=== PATIENT | male | born 1945 | race Caucasian/White ===

== ENCOUNTER → 2017-03-04 | Outpatient (CLI) | payer OTHER ==
[~2017-03-04] MED LIST: ACET-1757 PO; ACET325T21 PO; ACID1CAP PO; ACID1TAB7 PO; ALBU0.63 NEB; ALBUTEROL NEB INH; ALPR0.5T6 PO; AMOX-367 PO; AMOX1TAB64 PO; AMPI3VIA IV; ASCO500T7 PO; ASPI-614 PO; ASPI325T4 PO; ATOR20TA9 PO; BACL-19 PO; BIFI4CAP PO; CALC500T PO; CLOP75TA PO; Calcium Carbonate PO; DAPT500V6 IV; DOCU100C8 PO; ENOX40SY4 SQ; ERTA1VIA IV; FAMO20TA7 PO; FINA5TAB PO; FINA5TAB4 PO; FOLI1TAB7 PO; HYDR-3240 PO; HYDR25PO5 PO; LEVO50TA PO; LEVO50TA5 PO; LEVO750T6 PO; LISI5TAB7 PO; LOPE1TAB4 PO; LOSA50TA6 PO; MAGN400O4 PO; MAGN400T7 PO; METO25TA35 PO; METO50TA82 PO; METR500T PO; MICA100V3 IV; MORP30PC IV; NICO1PAT4 TD; NYST1000 PO; NYST1POW2 TP; OMEP20CA9 PO; ONDA4TAB7 PO; OXYC-302 PO; OXYC5TAB3 PO; PANT40TA5 PO; PHOS250T3 PO; SULF1TAB23 PO; SULF1TAB24 PO; TAMS0.4C2 PO; THIA100T10 PO; TRAM50TA2 PO; TRAZ50TA18 PO; VANC125C2 PO; VANC1VIA3 PO; ZINC220T PO
== END | disposition home or self-care (01) ==
LOC: CARD 12:31
PROVIDERS: ATTEND Internal Medicine Critical Care Medicine
DX: J44.9 Chronic obstructive pulmonary disease, unspecified (principal); M41.84 Other forms of scoliosis, thoracic region; Z95.0 Presence of cardiac pacemaker
CPT/HCPCS: 71020; 94060

== ENCOUNTER 2017-10-14 05:59 | Inpatient (IN) | payer OTHER ==
[~2017-10-14] VITALS: Ht 162.6 cm; Wt 72.6 kg
[~2017-10-14 05:59] MED LIST changes: +ACID1TAB PO; +ASPI325T17 PO; -ASPI325T4 PO; +CHOL10003 PO; +DOCU100C33 PO; -DOCU100C8 PO; -MAGN400O4 PO; +MAGN400O7 PO; +MULT-717 PO; +NICO-486 TD; -NICO1PAT4 TD; +NYST15CR2 TP; +OMEP-110 PO; +OMEP20TA62 PO; +PIPE3.373 IV; +SENN1TAB7 PO; +TAMS-11 PO
[2017-10-14] MEDS ORDERED: hydrALAzine 20 MG/ML, 1ML ONE (06:16)
[2017-10-14] MEDS ORDERED: CALCIUM GLUCONATE 0.46MEQ/1ML IVPush ONE (06:30)
[2017-10-14] MEDS ORDERED: MIDAZOLAM 1 MG/ML, 5ML IVPush ONE ×2 (06:30→10:00)
[2017-10-14] MEDS ORDERED: hydrALAzine 20 MG/ML, 1ML IV ONE (06:30)
[2017-10-14] MEDS ORDERED: MAGNESIUM SULFATE 1 GM in SODIUM CHLORIDE 0.9% 50 ML IV ONE (06:30)
[2017-10-14] MEDS ORDERED: AMIODARONE 150 MG in DEXTROSE 5% 100 ML IV ONE (06:30)
[2017-10-14] MEDS ORDERED: ROCURONIUM 10 MG/ML,10ML IVPush ONE (06:30)
[2017-10-14] MEDS ORDERED: ETOMIDATE 20 MG/10 ML IVPush ONE (06:30)
[2017-10-14] MEDS: AMIODARONE 900 MG in DEXTROSE 5% 482 ML IV SCH (06:33)
[2017-10-14 06:36] LABS: INTERNATIONAL NORMALIZED RATIO 1.24 (0.93-1.1); PROTHROMBIN TIME 12.8 Seconds (9.6-11.5)
[2017-10-14 06:38] LABS: ALANINE AMINOTRANSFERASE 22 U/L (12-78); ALBUMIN 3.2 g/dL (3.4-5.0); ANION GAP 16 mmol/L (5-15); CALCIUM 10.4 mg/dL (8.5-10.1); CHLORIDE 105 mmol/L (98-107); CREATININE 0.87 mg/dL (0.7-1.3)
[2017-10-14 06:43] LABS: ALKALINE PHOSPHATASE 87 U/L (45-117); BILIRUBIN,TOTAL 0.5 mg/dL (0.2-1.0); TOTAL PROTEIN 6.9 g/dL (6.4-8.2); TROPONIN I 0.021 ng/mL (0.000-0.045)
[2017-10-14] MEDS: FILTER 0.22 MICRON IV PRN (06:44)
[2017-10-14 06:50] LABS: MEAN CORPUSCULAR HEMOGLOBIN 28.9 pg (27.5-34.5); MEAN CORPUSCULAR HGB CONC 32.2 g/dL (33.2-36.2); MEAN CORPUSCULAR VOLUME 89.8 fL (81-97); MEAN PLATELET VOLUME 8.7 fL (7.4-10.4); PLATELET COUNT 387 x10^3/uL (130-400); RED BLOOD COUNT 6.03 x10^6/uL (4.38-5.82); RED CELL DISTRIBUTION WIDTH 15.1 % (9.4-14.8)
[2017-10-14 06:54] LABS: MD YES
[2017-10-14 06:57] LABS: MICROSCOPIC INDICATED
[2017-10-14 06:58] LABS: BAND#(MANUAL) 8.94 x10^3/uL; BANDS%(MANUAL) 16 % (0-7); EOS#(MANUAL) 1.12 x10^3/uL (0.0-0.4); EOS% (MANUAL) 2 % (1-7); LYMPH#(MANUAL) 11.74 x10^3/uL (1-3.4); LYMPHS% (MANUAL) 21 % (22-44); MONOS#(MANUAL) 3.91 x10^3/uL (0.3-2.7); MONOS% (MANUAL) 7 % (2-9); SEG#(MANUAL) 30.19 x10^3/uL (1.8-6.8); SEGS% (MANUAL) 54 % (42-75)
[2017-10-14 06:59] LABS: <PLATELET ESTIMATE> ADEQUATE; ANISOCYTOSIS 1+; LARGE PLATELETS 1+; POLYCHROMASIA 1+
[2017-10-14] MEDS ORDERED: VANCOMYCIN PER PHARMACY MC ONE (07:09)
[2017-10-14 07:15] LABS: CULTURE INDICATED? NO
[2017-10-14] MEDS ORDERED: MEROPENEM 1 GM in SODIUM CHLORIDE 0.9% 100 ML IV ONE (07:30)
[2017-10-14] MEDS ORDERED: VANCOMYCIN 1,500 MG in SODIUM CHLORIDE 0.9% 250 ML IV ONE (07:30)
[2017-10-14] MEDS: PROPOFOL 100 ML IV SCH ×3 (07:40→20:55)
[2017-10-14] MEDS ORDERED: LABETALOL 5MG/ML, 20ML IVPush PRN (08:00)
[2017-10-14] MEDS ORDERED: POLYETHYLENE GLYCOL 17 GM PACKET PO PRN (08:00)
[2017-10-14] MEDS ORDERED: HEPARIN 5,000 UNITS/ML, 1ML SQ SCH (08:00)
[2017-10-14] MEDS ORDERED: DOCUSATE 100 MG CAPSULE PO PRN (08:00)
[2017-10-14] MEDS ORDERED: BISACODYL 10 MG SUPP PR PRN ×2 (08:00→12:30)
[2017-10-14] MEDS ORDERED: hydrALAzine 20 MG/ML, 1ML IVPush PRN (08:00)
[2017-10-14] MEDS ORDERED: VANCOMYCIN PER PHARMACY MC PRN (08:00)
[2017-10-14] MEDS ORDERED: ACETAMINOPHEN 325 MG TABLET PO PRN (08:00)
[2017-10-14] MEDS ORDERED: PANTOPRAZOLE 40 MG IV IVPush SCH (08:00)
[2017-10-14] MEDS ORDERED: OMNIPAQUE 350 MG/ML, 100ML BOTTLE ONE (08:31)
[2017-10-14] MEDS ORDERED: ONDA4TAB10 PO (08:55)
[2017-10-14] MEDS ORDERED: LACT1CAP61 PO (08:55)
[2017-10-14] MEDS ORDERED: ATOR40TA78 PO (08:55)
[2017-10-14] MEDS ORDERED: LOSARTAN 50MG TABLET PO SCH (09:00)
[2017-10-14] MEDS ORDERED: SODIUM CHLORIDE 0.9% 1,000ML IVBOLUS ONE (09:00)
[2017-10-14] MEDS: FINASTERIDE 5 MG TABLET PO SCH (09:00)
[2017-10-14] MEDS ORDERED: DILTIAZEM 5 MG/ML, 5ML IVPush ONE (09:00)
[2017-10-14] MEDS: NYSTATIN/TRIAMCINOLONE CRM 15GM TP SCH ×2 (09:00→20:56)
[2017-10-14 09:05] LABS: CHOL/HDL RATIO 2.8; LDL/HDL RATIO 0.6 (0.5-3.0)
[2017-10-14] MEDS ORDERED: POTA99TA24 PO-COUM (09:06)
[2017-10-14 09:36] LABS: THYROID STIMULATING HORMONE 8.15 mIU/L (0.358-3.740)
[2017-10-14] MEDS: METOPROLOL TARTRATE 25 MG TABLET PO SCH ×3 (10:00→21:00)
[2017-10-14] MEDS ORDERED: INSULIN REGULAR 100 UNITS/ML, 3ML VIAL IVPush ONE (10:00)
[2017-10-14] MEDS ORDERED: FENTANYL PF 100 MCG/2ML IV ONE (10:15)
[2017-10-14] MEDS ORDERED: FENTANYL PF 100 MCG/2ML ONE (10:18)
[2017-10-14] MEDS ORDERED: PANTOPRAZOLE 40 MG IV ONE (10:45)
[2017-10-14] MEDS ORDERED: INSULIN REGULAR 100 UNITS/ML, 3ML VIAL ONE (10:46)
[2017-10-14] MEDS: LACTATED RINGERS 1,000 ML IV SCH ×3 (11:01→21:30)
[2017-10-14 12:19] LABS: TROPONIN I 0.161 ng/mL (0.000-0.045)
[2017-10-14] MEDS ORDERED: VECURONIUM 10 MG ONE (12:29)
[2017-10-14] MEDS: FAMOTIDINE 20 MG/2 ML IV SCH (12:30)
[2017-10-14] MEDS: ALBUTEROL/IPRATROPIUM 2.5MG/0.5MG, 3 ML INLINE SCH ×4 (12:30→22:04)
[2017-10-14] MEDS ORDERED: PHARMACY MAY ADJ FOR RENAL FX MC SCH (12:30)
[2017-10-14] MEDS ORDERED: SODIUM CHLORIDE 0.9% 1,000ML IV SCH (12:30)
[2017-10-14] MEDS ORDERED: FENTANYL PF 100 MCG/2ML IVPush PRN (12:30)
[2017-10-14] MEDS ORDERED: SENNA/DOCUSATE TABLET NG PRN (12:30)
[2017-10-14] MEDS ORDERED: SENNOSIDES 8.8 MG/5 ML ORAL SOL NG PRN (12:30)
[2017-10-14] MEDS ORDERED: LIDOCAINE-MPF 1%, 2ML ENDO PRN (12:30)
[2017-10-14] MEDS ORDERED: VECURONIUM 10 MG IVPush ONE (13:00)
[2017-10-14] MEDS ORDERED: PHARMACOKINETIC MONITORING MC PRN (13:00)
[2017-10-14] MEDS ORDERED: PHARMACOKINETIC CONSULTATION MC ONE (13:00)
[2017-10-14] MEDS ORDERED: FUROSEMIDE 40 MG/4 ML IV ONE (13:30)
[2017-10-14] MEDS ORDERED: CALCIUM CHLORIDE 13.6 MEQ/10 ML ONE (14:00)
[2017-10-14] MEDS ORDERED: ETOMIDATE 20 MG/10 ML ONE (14:00)
[2017-10-14] MEDS ORDERED: PROPOFOL 10 MG/ML, 100ML IV ONE (14:00)
[2017-10-14] MEDS ORDERED: MIDAZOLAM 1 MG/ML, 5ML ONE (14:00)
[2017-10-14] MEDS ORDERED: ROCURONIUM 10MG/ML,5ML ONE (14:00)
[2017-10-14] MEDS ORDERED: AMIODARONE 50 MG/ML, 3ML ONE (14:00)
[2017-10-14] MEDS: MEROPENEM 1 GM in SODIUM CHLORIDE 0.9% 100 ML IV SCH (15:31)
[2017-10-14] MEDS: VANCOMYCIN 50 MG/ML ORAL SUSP PO SCH ×2 (15:31→19:43)
[2017-10-14] MEDS: CHOLECALCIFEROL 1,000 UNIT TABLET PO SCH (15:36)
[2017-10-14] MEDS: ENOXAPARIN 80 MG/0.8 ML SQ SCH (15:36)
[2017-10-14] MEDS: LACTOBACILLUS CHEW TABLET PO SCH ×2 (15:40→20:56)
[2017-10-14 17:08] LABS: MICROSCOPIC NOT IND
[2017-10-14 17:11] LABS: CULTURE INDICATED? NO
[2017-10-14] MEDS ORDERED: METOPROLOL TARTRATE 25 MG TABLET PO SCH (18:00)
[2017-10-14 18:07] LABS: TROPONIN I 0.195 ng/mL (0.000-0.045)
[2017-10-14] MEDS: TAMSULOSIN 0.4 MG CAP.ER.24H PO SCH (20:56)
[2017-10-14] MEDS: ATORVASTATIN 40 MG TABLET PO SCH (20:56)
[2017-10-14 22:15] VITALS: BP 89/58
[2017-10-15] MEDS: MEROPENEM 1 GM in SODIUM CHLORIDE 0.9% 100 ML IV SCH ×4 (00:05→18:18)
[2017-10-15] MEDS: ENOXAPARIN 80 MG/0.8 ML SQ SCH ×2 (00:05→13:28)
[2017-10-15] MEDS: FAMOTIDINE 20 MG/2 ML IV SCH ×2 (00:05→13:28)
[2017-10-15] MEDS: VANCOMYCIN 50 MG/ML ORAL SUSP PO SCH ×4 (00:12→19:19)
[2017-10-15] MEDS: ALBUTEROL/IPRATROPIUM 2.5MG/0.5MG, 3 ML INLINE SCH ×6 (02:16→22:00)
[2017-10-15] MEDS: METOPROLOL TARTRATE 25 MG TABLET PO SCH ×4 (04:00→21:30)
[2017-10-15] MEDS: PROPOFOL 100 ML IV PRN ×3 (04:26→19:20)
[2017-10-15 04:35] LABS: MEAN CORPUSCULAR HEMOGLOBIN 29.4 pg (27.5-34.5); MEAN CORPUSCULAR VOLUME 89.3 fL (81-97); MEAN PLATELET VOLUME 8.8 fL (7.4-10.4); PLATELET COUNT 267 x10^3/uL (130-400); RED CELL DISTRIBUTION WIDTH 15.2 % (9.4-14.8)
[2017-10-15 04:39] LABS: CHLORIDE 110 mmol/L (98-107)
[2017-10-15 04:44] LABS: ALANINE AMINOTRANSFERASE 18 U/L (12-78); ALBUMIN 2.1 g/dL (3.4-5.0); ALKALINE PHOSPHATASE 52 U/L (45-117); ANION GAP 10 mmol/L (5-15); BILIRUBIN,TOTAL 0.8 mg/dL (0.2-1.0); CALCIUM 7.7 mg/dL (8.5-10.1); CREATININE 0.64 mg/dL (0.7-1.3); TOTAL PROTEIN 5.1 g/dL (6.4-8.2)
[2017-10-15] MEDS: FILTER 0.22 MICRON IV PRN (04:46)
[2017-10-15] MEDS: NOREPINEPHRINE 4 MG in SODIUM CHLORIDE 0.9% 246 ML IV PRN (04:46)
[2017-10-15] MEDS: AMIODARONE 900 MG in DEXTROSE 5% 482 ML IV SCH ×2 (04:46→07:53)
[2017-10-15 05:31] LABS: MD YES
[2017-10-15 05:33] LABS: BAND#(MANUAL) 6.74 x10^3/uL; BANDS%(MANUAL) 24 % (0-7); LYMPH#(MANUAL) 3.65 x10^3/uL (1-3.4); LYMPHS% (MANUAL) 13 % (22-44); SEGS% (MANUAL) 63 % (42-75)
[2017-10-15 05:34] LABS: <PLATELET ESTIMATE> ADEQUATE; <RBC MORPHOLOGY> NORMAL
[2017-10-15 05:35] LABS: LARGE PLATELETS 1+
[2017-10-15 08:46] LABS: TROPONIN I 0.083 ng/mL (0.000-0.045)
[2017-10-15] MEDS ORDERED: MAGNESIUM SULFATE PMX 4GM/100M 100 ML IV ONE ×2 (09:00)
[2017-10-15] MEDS: FINASTERIDE 5 MG TABLET PO SCH (09:00)
[2017-10-15] MEDS: VANCOMYCIN 1,500 MG in SODIUM CHLORIDE 0.9% 250 ML IV SCH (09:27)
[2017-10-15] MEDS: POTASSIUM CHLORIDE 20 MEQ PACKET PO SCH ×3 (09:27→21:57)
[2017-10-15] MEDS: CHOLECALCIFEROL 1,000 UNIT TABLET PO SCH (09:27)
[2017-10-15] MEDS: LACTOBACILLUS CHEW TABLET PO SCH ×2 (09:27→21:56)
[2017-10-15] MEDS: NYSTATIN/TRIAMCINOLONE CRM 15GM TP SCH ×2 (09:28→21:57)
[2017-10-15] MEDS ORDERED: AMIODARONE 150 MG in DEXTROSE 5% 100 ML IV ONE (11:00)
[2017-10-15] MEDS: LACTATED RINGERS 1,000 ML IV SCH (13:28)
[2017-10-15] MEDS ORDERED: SODIUM CHLORIDE 0.9%, 500ML IVBOLUS ONE (15:00)
[2017-10-15] MEDS: ATORVASTATIN 40 MG TABLET PO SCH (21:56)
[2017-10-15] MEDS: TAMSULOSIN 0.4 MG CAP.ER.24H PO SCH (21:56)
[2017-10-16] MEDS: LACTATED RINGERS 1,000 ML IV SCH (00:11)
[2017-10-16] MEDS: VANCOMYCIN 50 MG/ML ORAL SUSP PO SCH ×4 (01:07→20:23)
[2017-10-16] MEDS: ENOXAPARIN 80 MG/0.8 ML SQ SCH ×2 (01:08→14:27)
[2017-10-16] MEDS: FAMOTIDINE 20 MG/2 ML IV SCH ×2 (01:08→14:26)
[2017-10-16] MEDS: PROPOFOL 100 ML IV PRN ×3 (01:09→17:58)
[2017-10-16] MEDS: ALBUTEROL/IPRATROPIUM 2.5MG/0.5MG, 3 ML INLINE SCH ×6 (02:00→22:00)
[2017-10-16] MEDS: MEROPENEM 1 GM in SODIUM CHLORIDE 0.9% 100 ML IV SCH ×3 (02:52→18:01)
[2017-10-16] MEDS: METOPROLOL TARTRATE 25 MG TABLET PO SCH ×4 (04:02→22:00)
[2017-10-16 06:26] LABS: BASOPHILS # (AUTO) 0.01 x10^3/uL (0-0.1); BASOPHILS % (AUTO) 0 % (0-1); EOSINOPHILS % (AUTO) 4 % (1-7); LYMPHOCYTES # (AUTO) 1.19 x10^3/uL (1-3.4); LYMPHOCYTES % (AUTO) 7 % (22-44); MD NO; MEAN CORPUSCULAR HEMOGLOBIN 29.3 pg (27.5-34.5); MEAN CORPUSCULAR VOLUME 88.8 fL (81-97); MEAN PLATELET VOLUME 8.9 fL (7.4-10.4); MONOCYTES # (AUTO) 0.91 x10^3/uL (0.2-0.8); MONOCYTES % (AUTO) 5 % (2-9); NEUTROPHILS # (AUTO) 14.24 x10^3/uL (1.8-6.8); NEUTROPHILS % (AUTO) 84 % (42-75); PLATELET COUNT 206 x10^3/uL (130-400); RED BLOOD COUNT 4.53 x10^6/uL (4.38-5.82); RED CELL DISTRIBUTION WIDTH 15.9 % (9.4-14.8)
[2017-10-16 06:31] LABS: CHLORIDE 109 mmol/L (98-107)
[2017-10-16 06:35] LABS: ANION GAP 10 mmol/L (5-15); CALCIUM 7.5 mg/dL (8.5-10.1); CREATININE 0.39 mg/dL (0.7-1.3)
[2017-10-16] MEDS: VANCOMYCIN 1,500 MG in SODIUM CHLORIDE 0.9% 250 ML IV SCH (08:39)
[2017-10-16] MEDS: FINASTERIDE 5 MG TABLET PO SCH (09:00)
[2017-10-16 09:37] LABS: BASOPHILS # (AUTO) 0.04 x10^3/uL (0-0.1); BASOPHILS % (AUTO) 0 % (0-1); EOSINOPHILS % (AUTO) 5 % (1-7); LYMPHOCYTES # (AUTO) 1.03 x10^3/uL (1-3.4); LYMPHOCYTES % (AUTO) 7 % (22-44); MD NO; MEAN CORPUSCULAR HGB CONC 33.9 g/dL (33.2-36.2); MEAN CORPUSCULAR VOLUME 88.5 fL (81-97); MEAN PLATELET VOLUME 8.9 fL (7.4-10.4); MONOCYTES # (AUTO) 1.13 x10^3/uL (0.2-0.8); MONOCYTES % (AUTO) 7 % (2-9); NEUTROPHILS # (AUTO) 12.72 x10^3/uL (1.8-6.8); NEUTROPHILS % (AUTO) 81 % (42-75); PLATELET COUNT 191 x10^3/uL (130-400); RED BLOOD COUNT 4.42 x10^6/uL (4.38-5.82); RED CELL DISTRIBUTION WIDTH 15.5 % (9.4-14.8)
[2017-10-16 09:46] LABS: ALBUMIN 1.8 g/dL (3.4-5.0); TOTAL PROTEIN 4.6 g/dL (6.4-8.2)
[2017-10-16] MEDS: LACTOBACILLUS CHEW TABLET PO SCH ×2 (09:56→20:23)
[2017-10-16] MEDS: POTASSIUM CHLORIDE 20 MEQ PACKET PO SCH ×3 (09:56→20:23)
[2017-10-16] MEDS: CHOLECALCIFEROL 1,000 UNIT TABLET PO SCH (09:57)
[2017-10-16] MEDS: NYSTATIN/TRIAMCINOLONE CRM 15GM TP SCH ×2 (09:58→20:24)
[2017-10-16] MEDS ORDERED: LIDOCAINE 1%, 20ML ONE (10:11)
[2017-10-16] MEDS ORDERED: MAGNESIUM SULFATE PMX 2GM/50ML 50 ML IV ONE (11:00)
[2017-10-16] MEDS ORDERED: LIDOCAINE 1%, 50ML ONE (14:50)
[2017-10-16] MEDS ORDERED: FENTANYL PF 100 MCG/2ML IV ONE (15:00)
[2017-10-16] MEDS: QUETIAPINE 25MG TABLET PO SCH ×2 (16:00→20:23)
[2017-10-16] MEDS: NOREPINEPHRINE 4 MG in SODIUM CHLORIDE 0.9% 246 ML IV PRN (18:00)
[2017-10-16] MEDS: AMIODARONE 900 MG in DEXTROSE 5% 482 ML IV SCH (18:30)
[2017-10-16] MEDS: TAMSULOSIN 0.4 MG CAP.ER.24H PO SCH (20:23)
[2017-10-16] MEDS: ATORVASTATIN 40 MG TABLET PO SCH (20:23)
[2017-10-17] MEDS: ALBUTEROL/IPRATROPIUM 2.5MG/0.5MG, 3 ML INLINE SCH ×6 (01:57→22:00)
[2017-10-17] MEDS: VANCOMYCIN 50 MG/ML ORAL SUSP PO SCH ×4 (02:04→19:24)
[2017-10-17] MEDS: FAMOTIDINE 20 MG/2 ML IV SCH ×2 (02:04→13:01)
[2017-10-17] MEDS: ENOXAPARIN 80 MG/0.8 ML SQ SCH ×2 (02:04→13:00)
[2017-10-17] MEDS: LACTATED RINGERS 1,000 ML IV SCH (02:04)
[2017-10-17] MEDS: PROPOFOL 100 ML IV PRN ×3 (02:10→20:07)
[2017-10-17] MEDS: MEROPENEM 1 GM in SODIUM CHLORIDE 0.9% 100 ML IV SCH (02:25)
[2017-10-17 03:22] LABS: BASOPHILS # (AUTO) 0.06 x10^3/uL (0-0.1); BASOPHILS % (AUTO) 1 % (0-1); EOSINOPHILS # (AUTO) 0.72 x10^3/uL (0-0.4); EOSINOPHILS % (AUTO) 6 % (1-7); LYMPHOCYTES # (AUTO) 0.95 x10^3/uL (1-3.4); LYMPHOCYTES % (AUTO) 8 % (22-44); MD NO; MEAN CORPUSCULAR HEMOGLOBIN 29.4 pg (27.5-34.5); MEAN CORPUSCULAR HGB CONC 33.3 g/dL (33.2-36.2); MEAN CORPUSCULAR VOLUME 88.3 fL (81-97); MEAN PLATELET VOLUME 8.9 fL (7.4-10.4); MONOCYTES # (AUTO) 0.77 x10^3/uL (0.2-0.8); MONOCYTES % (AUTO) 6 % (2-9); NEUTROPHILS # (AUTO) 9.84 x10^3/uL (1.8-6.8); NEUTROPHILS % (AUTO) 80 % (42-75); PLATELET COUNT 189 x10^3/uL (130-400); RED BLOOD COUNT 4.44 x10^6/uL (4.38-5.82); RED CELL DISTRIBUTION WIDTH 15.6 % (9.4-14.8)
[2017-10-17 03:31] LABS: ALANINE AMINOTRANSFERASE 19 U/L (12-78); ALBUMIN 1.7 g/dL (3.4-5.0); ANION GAP 7 mmol/L (5-15); CALCIUM 7.7 mg/dL (8.5-10.1); CHLORIDE 111 mmol/L (98-107); CREATININE 0.31 mg/dL (0.7-1.3); TRIGLYCERIDES 123 mg/dL (50-200)
[2017-10-17 03:34] LABS: ALKALINE PHOSPHATASE 60 U/L (45-117); BILIRUBIN,TOTAL 0.4 mg/dL (0.2-1.0); TOTAL PROTEIN 4.5 g/dL (6.4-8.2)
[2017-10-17] MEDS: METOPROLOL TARTRATE 25 MG TABLET PO SCH ×4 (04:00→22:34)
[2017-10-17] MEDS: CEFTRIAXONE PMX 1GM/50ML 50 ML IV SCH (08:50)
[2017-10-17] MEDS: CHOLECALCIFEROL 1,000 UNIT TABLET PO SCH (08:51)
[2017-10-17] MEDS: QUETIAPINE 25MG TABLET PO SCH ×2 (08:52→20:07)
[2017-10-17] MEDS: FINASTERIDE 5 MG TABLET PO SCH (08:53)
[2017-10-17] MEDS: LACTOBACILLUS CHEW TABLET PO SCH ×2 (08:54→20:07)
[2017-10-17] MEDS: POTASSIUM CHLORIDE 20 MEQ PACKET PO SCH ×3 (08:54→20:07)
[2017-10-17] MEDS: AMIODARONE 200 MG TABLET PO SCH ×2 (08:56→20:07)
[2017-10-17] MEDS: DOXYCYCLINE 100 MG in DEXTROSE 5% 250 ML IV SCH ×2 (08:56→20:11)
[2017-10-17] MEDS: NYSTATIN/TRIAMCINOLONE CRM 15GM TP SCH ×2 (08:57→20:11)
[2017-10-17] MEDS ORDERED: LACTATED RINGERS 1,000 ML IV SCH (10:00)
[2017-10-17] MEDS ORDERED: MORPHINE SULFATE 4 MG/ML, 1ML ONE (15:47)
[2017-10-17] MEDS: MORPHINE SULFATE 4 MG/ML, 1ML IVPush PRN (15:52)
[2017-10-17] MEDS: ATORVASTATIN 40 MG TABLET PO SCH (20:07)
[2017-10-17] MEDS: TAMSULOSIN 0.4 MG CAP.ER.24H PO SCH (20:07)
[2017-10-18] MEDS: ALBUTEROL/IPRATROPIUM 2.5MG/0.5MG, 3 ML INLINE SCH ×6 (02:00→22:09)
[2017-10-18] MEDS: FAMOTIDINE 20 MG/2 ML IV SCH (03:04)
[2017-10-18] MEDS: ENOXAPARIN 80 MG/0.8 ML SQ SCH ×2 (03:05→13:10)
[2017-10-18] MEDS: VANCOMYCIN 50 MG/ML ORAL SUSP PO SCH ×4 (03:05→21:59)
[2017-10-18] MEDS: METOPROLOL TARTRATE 25 MG TABLET PO SCH ×4 (04:47→21:59)
[2017-10-18 07:15] LABS: MEAN CORPUSCULAR HEMOGLOBIN 28.8 pg (27.5-34.5); MEAN CORPUSCULAR HGB CONC 32.4 g/dL (33.2-36.2); MEAN PLATELET VOLUME 10.3 fL (7.4-10.4); PLATELET COUNT 197 x10^3/uL (130-400); RED BLOOD COUNT 4.46 x10^6/uL (4.38-5.82); RED CELL DISTRIBUTION WIDTH 15.8 % (9.4-14.8)
[2017-10-18 07:22] LABS: ANION GAP 6 mmol/L (5-15); CALCIUM 7.9 mg/dL (8.5-10.1); CHLORIDE 108 mmol/L (98-107)
[2017-10-18] MEDS: CEFTRIAXONE PMX 1GM/50ML 50 ML IV SCH (07:52)
[2017-10-18] MEDS: MORPHINE SULFATE 4 MG/ML, 1ML IVPush PRN ×2 (07:52→20:09)
[2017-10-18 08:39] LABS: MD YES
[2017-10-18 08:42] LABS: ANISOCYTOSIS 1+; LYMPH#(MANUAL) 1.68 x10^3/uL (1-3.4); LYMPHS% (MANUAL) 14 % (22-44); MONOS#(MANUAL) 0.48 x10^3/uL (0.3-2.7); MONOS% (MANUAL) 4 % (2-9); SEG#(MANUAL) 9.84 x10^3/uL (1.8-6.8); SEGS% (MANUAL) 82 % (42-75)
[2017-10-18 08:43] LABS: <PLATELET ESTIMATE> ADEQUATE; <PLT MORPHOLOGY> NORMAL PLT MORPH
[2017-10-18] MEDS: DOXYCYCLINE 100 MG in DEXTROSE 5% 250 ML IV SCH ×2 (08:55→20:07)
[2017-10-18] MEDS: CHOLECALCIFEROL 1,000 UNIT TABLET PO SCH (08:56)
[2017-10-18] MEDS: LACTOBACILLUS CHEW TABLET PO SCH ×2 (08:56→20:08)
[2017-10-18] MEDS: AMIODARONE 200 MG TABLET PO SCH ×2 (08:56→20:08)
[2017-10-18] MEDS: FINASTERIDE 5 MG TABLET PO SCH (08:56)
[2017-10-18] MEDS: QUETIAPINE 25MG TABLET PO SCH ×2 (08:57→20:09)
[2017-10-18] MEDS: NYSTATIN/TRIAMCINOLONE CRM 15GM TP SCH ×2 (08:57→22:00)
[2017-10-18] MEDS: FAMOTIDINE 20 MG TABLET PO SCH (13:10)
[2017-10-18] MEDS: TAMSULOSIN 0.4 MG CAP.ER.24H PO SCH (20:08)
[2017-10-18] MEDS: ATORVASTATIN 40 MG TABLET PO SCH (20:08)
[2017-10-18] MEDS: MIDAZOLAM 1 MG/ML, 2ML IV PRN (23:27)
[2017-10-19] MEDS: ENOXAPARIN 80 MG/0.8 ML SQ SCH ×2 (01:14→13:55)
[2017-10-19] MEDS: FAMOTIDINE 20 MG TABLET PO SCH ×3 (01:14→23:49)
[2017-10-19] MEDS: MORPHINE SULFATE 4 MG/ML, 1ML IVPush PRN ×3 (02:44→19:44)
[2017-10-19] MEDS: ALBUTEROL/IPRATROPIUM 2.5MG/0.5MG, 3 ML INLINE SCH ×6 (03:09→23:26)
[2017-10-19] MEDS: VANCOMYCIN 50 MG/ML ORAL SUSP PO SCH ×4 (04:03→21:56)
[2017-10-19] MEDS: METOPROLOL TARTRATE 25 MG TABLET PO SCH ×4 (04:03→23:49)
[2017-10-19 04:28] LABS: MEAN CORPUSCULAR HEMOGLOBIN 28.8 pg (27.5-34.5); MEAN CORPUSCULAR HGB CONC 32.5 g/dL (33.2-36.2); MEAN CORPUSCULAR VOLUME 88.6 fL (81-97); PLATELET COUNT 216 x10^3/uL (130-400); RED BLOOD COUNT 4.41 x10^6/uL (4.38-5.82); RED CELL DISTRIBUTION WIDTH 15.6 % (9.4-14.8)
[2017-10-19 04:38] LABS: ANION GAP 4 mmol/L (5-15); CALCIUM 8.5 mg/dL (8.5-10.1); CHLORIDE 104 mmol/L (98-107); CREATININE 0.27 mg/dL (0.7-1.3)
[2017-10-19 05:59] LABS: BASOPHILS # (AUTO) 0.04 x10^3/uL (0-0.1); BASOPHILS % (AUTO) 0 % (0-1); EOSINOPHILS # (AUTO) 0.95 x10^3/uL (0-0.4); EOSINOPHILS % (AUTO) 7 % (1-7); LYMPHOCYTES # (AUTO) 1.68 x10^3/uL (1-3.4); LYMPHOCYTES % (AUTO) 12 % (22-44); MD SCAN; MONOCYTES # (AUTO) 1.66 x10^3/uL (0.2-0.8); MONOCYTES % (AUTO) 12 % (2-9); NEUTROPHILS # (AUTO) 9.22 x10^3/uL (1.8-6.8); NEUTROPHILS % (AUTO) 68 % (42-75)
[2017-10-19] MEDS ORDERED: MAGNESIUM SULFATE PMX 2GM/50ML 50 ML IV ONE (07:30)
[2017-10-19] MEDS: CEFTRIAXONE 1,000 MG in DEXTROSE 5% 50 ML IV SCH (07:46)
[2017-10-19] MEDS: DOXYCYCLINE 100 MG in DEXTROSE 5% 250 ML IV SCH ×2 (08:46→21:56)
[2017-10-19] MEDS: FINASTERIDE 5 MG TABLET PO SCH (09:00)
[2017-10-19] MEDS: NYSTATIN/TRIAMCINOLONE CRM 15GM TP SCH ×2 (09:59→21:57)
[2017-10-19] MEDS: LACTOBACILLUS CHEW TABLET PO SCH ×2 (10:01→21:57)
[2017-10-19] MEDS: QUETIAPINE 25MG TABLET PO SCH ×2 (10:02→21:57)
[2017-10-19] MEDS: AMIODARONE 200 MG TABLET PO SCH ×2 (10:04→21:56)
[2017-10-19] MEDS: CHOLECALCIFEROL 1,000 UNIT TABLET PO SCH (10:04)
[2017-10-19] MEDS: LACTULOSE 20 GM/30 ML UDC NG PRN (10:20)
[2017-10-19] MEDS: MIDAZOLAM 1 MG/ML, 2ML IV PRN (19:47)
[2017-10-19] MEDS: TAMSULOSIN 0.4 MG CAP.ER.24H PO SCH (21:00)
[2017-10-19] MEDS: ATORVASTATIN 40 MG TABLET PO SCH (21:56)
[2017-10-20] MEDS: ENOXAPARIN 80 MG/0.8 ML SQ SCH ×2 (02:13→16:03)
[2017-10-20] MEDS: MORPHINE SULFATE 4 MG/ML, 1ML IVPush PRN (02:13)
[2017-10-20] MEDS: ALBUTEROL/IPRATROPIUM 2.5MG/0.5MG, 3 ML INLINE SCH ×2 (03:33→06:00)
[2017-10-20] MEDS: VANCOMYCIN 50 MG/ML ORAL SUSP PO SCH ×4 (03:54→22:01)
[2017-10-20] MEDS: METOPROLOL TARTRATE 25 MG TABLET PO SCH ×4 (03:54→22:04)
[2017-10-20 04:45] LABS: MEAN CORPUSCULAR HEMOGLOBIN 29.3 pg (27.5-34.5); MEAN CORPUSCULAR HGB CONC 32.8 g/dL (33.2-36.2); MEAN CORPUSCULAR VOLUME 89.2 fL (81-97); MEAN PLATELET VOLUME 9.1 fL (7.4-10.4); PLATELET COUNT 246 x10^3/uL (130-400); RED CELL DISTRIBUTION WIDTH 15.5 % (9.4-14.8)
[2017-10-20 04:47] LABS: ANION GAP 7 mmol/L (5-15); CALCIUM 8.9 mg/dL (8.5-10.1); CHLORIDE 102 mmol/L (98-107)
[2017-10-20 04:51] LABS: CREATININE 0.23 mg/dL (0.7-1.3); TRIGLYCERIDES 103 mg/dL (50-200)
[2017-10-20 05:35] LABS: BASOPHILS % (AUTO) 1 % (0-1); EOSINOPHILS # (AUTO) 0.88 x10^3/uL (0-0.4); EOSINOPHILS % (AUTO) 6 % (1-7); LYMPHOCYTES % (AUTO) 16 % (22-44); MD SCAN; MONOCYTES # (AUTO) 1.69 x10^3/uL (0.2-0.8); MONOCYTES % (AUTO) 12 % (2-9); NEUTROPHILS # (AUTO) 9.09 x10^3/uL (1.8-6.8); NEUTROPHILS % (AUTO) 65 % (42-75)
[2017-10-20] MEDS: FINASTERIDE 5 MG TABLET PO SCH (07:46)
[2017-10-20] MEDS: CHOLECALCIFEROL 1,000 UNIT TABLET PO SCH (07:52)
[2017-10-20] MEDS: LACTOBACILLUS CHEW TABLET PO SCH ×2 (07:52→20:35)
[2017-10-20] MEDS: QUETIAPINE 25MG TABLET PO SCH (07:52)
[2017-10-20] MEDS: AMIODARONE 200 MG TABLET PO SCH ×2 (07:53→20:36)
[2017-10-20] MEDS: CEFTRIAXONE 1,000 MG in DEXTROSE 5% 50 ML IV SCH (09:12)
[2017-10-20] MEDS: NYSTATIN/TRIAMCINOLONE CRM 15GM TP SCH ×2 (09:12→20:30)
[2017-10-20] MEDS ORDERED: ALBUTEROL/IPRATROPIUM 2.5MG/0.5MG, 3 ML NPPB PRN (09:30)
[2017-10-20] MEDS: DOXYCYCLINE 100 MG in DEXTROSE 5% 250 ML IV SCH ×2 (10:04→20:30)
[2017-10-20] MEDS: ALBUTEROL/IPRATROPIUM 2.5MG/0.5MG, 3 ML NPPB SCH ×3 (10:21→20:01)
[2017-10-20] MEDS: TAMSULOSIN 0.4 MG CAP.ER.24H PO SCH (20:35)
[2017-10-20] MEDS: ATORVASTATIN 40 MG TABLET PO SCH (20:35)
[2017-10-21 04:26] LABS: BASOPHILS # (AUTO) 0.09 x10^3/uL (0-0.1); BASOPHILS % (AUTO) 1 % (0-1); EOSINOPHILS # (AUTO) 0.57 x10^3/uL (0-0.4); EOSINOPHILS % (AUTO) 4 % (1-7); LYMPHOCYTES % (AUTO) 11 % (22-44); MD NO; MEAN CORPUSCULAR HEMOGLOBIN 28.7 pg (27.5-34.5); MEAN CORPUSCULAR HGB CONC 32.2 g/dL (33.2-36.2); MEAN CORPUSCULAR VOLUME 89.2 fL (81-97); MEAN PLATELET VOLUME 8.3 fL (7.4-10.4); MONOCYTES # (AUTO) 1.37 x10^3/uL (0.2-0.8); MONOCYTES % (AUTO) 9 % (2-9); NEUTROPHILS # (AUTO) 11.27 x10^3/uL (1.8-6.8); NEUTROPHILS % (AUTO) 76 % (42-75); PLATELET COUNT 306 x10^3/uL (130-400); RED BLOOD COUNT 4.53 x10^6/uL (4.38-5.82); RED CELL DISTRIBUTION WIDTH 15.4 % (9.4-14.8)
[2017-10-21] MEDS: VANCOMYCIN 50 MG/ML ORAL SUSP PO SCH ×4 (04:27→22:24)
[2017-10-21] MEDS: ENOXAPARIN 80 MG/0.8 ML SQ SCH (04:27)
[2017-10-21] MEDS: METOPROLOL TARTRATE 25 MG TABLET PO SCH (04:28)
[2017-10-21 04:45] LABS: ANION GAP 6 mmol/L (5-15); CHLORIDE 104 mmol/L (98-107); CREATININE 0.26 mg/dL (0.7-1.3)
[2017-10-21] MEDS: ALBUTEROL/IPRATROPIUM 2.5MG/0.5MG, 3 ML NPPB SCH ×3 (06:55→18:49)
[2017-10-21] MEDS ORDERED: MAGNESIUM SULFATE PMX 4GM/100M 100 ML IV ONE (07:30)
[2017-10-21] MEDS: DOXYCYCLINE 100 MG in DEXTROSE 5% 250 ML IV SCH (08:00)
[2017-10-21] MEDS: CEFTRIAXONE 1,000 MG in DEXTROSE 5% 50 ML IV SCH (08:24)
[2017-10-21] MEDS: NYSTATIN/TRIAMCINOLONE CRM 15GM TP SCH ×2 (08:32→22:24)
[2017-10-21] MEDS: LACTOBACILLUS CHEW TABLET PO SCH ×2 (08:41→22:24)
[2017-10-21] MEDS: CHOLESTYRAMINE LIGHT 4GM PACKET PO SCH ×2 (08:41→22:24)
[2017-10-21] MEDS: AMIODARONE 200 MG TABLET PO SCH (08:42)
[2017-10-21] MEDS: CHOLECALCIFEROL 1,000 UNIT TABLET PO SCH (08:42)
[2017-10-21] MEDS: FINASTERIDE 5 MG TABLET PO SCH (08:42)
[2017-10-21] MEDS: APIXABAN 5 MG TABLET PO SCH ×2 (12:00→22:24)
[2017-10-21] MEDS: METOPROLOL TARTRATE 50 MG TABLET PO SCH (17:51)
[2017-10-21] MEDS: TAMSULOSIN 0.4 MG CAP.ER.24H PO SCH (22:24)
[2017-10-21] MEDS: ATORVASTATIN 40 MG TABLET PO SCH (22:24)
[2017-10-22] MEDS: VANCOMYCIN 50 MG/ML ORAL SUSP PO SCH ×4 (04:00→21:50)
[2017-10-22 04:36] LABS: MEAN CORPUSCULAR HEMOGLOBIN 29.3 pg (27.5-34.5); MEAN CORPUSCULAR HGB CONC 33.2 g/dL (33.2-36.2); MEAN CORPUSCULAR VOLUME 88.2 fL (81-97); MEAN PLATELET VOLUME 8.6 fL (7.4-10.4); PLATELET COUNT 379 x10^3/uL (130-400); RED BLOOD COUNT 4.95 x10^6/uL (4.38-5.82); RED CELL DISTRIBUTION WIDTH 15.3 % (9.4-14.8)
[2017-10-22 04:41] LABS: ANION GAP 6 mmol/L (5-15); CALCIUM 8.7 mg/dL (8.5-10.1); CHLORIDE 101 mmol/L (98-107); CREATININE 0.37 mg/dL (0.7-1.3)
[2017-10-22 05:47] LABS: BASOPHILS # (AUTO) 0.16 x10^3/uL (0-0.1); BASOPHILS % (AUTO) 1 % (0-1); EOSINOPHILS # (AUTO) 0.23 x10^3/uL (0-0.4); EOSINOPHILS % (AUTO) 1 % (1-7); LYMPHOCYTES # (AUTO) 1.65 x10^3/uL (1-3.4); LYMPHOCYTES % (AUTO) 10 % (22-44); MD SCAN; MONOCYTES # (AUTO) 1.86 x10^3/uL (0.2-0.8); MONOCYTES % (AUTO) 11 % (2-9); NEUTROPHILS # (AUTO) 12.96 x10^3/uL (1.8-6.8); NEUTROPHILS % (AUTO) 77 % (42-75)
[2017-10-22] MEDS: METOPROLOL TARTRATE 50 MG TABLET PO SCH ×2 (06:27→18:21)
[2017-10-22] MEDS: ALBUTEROL/IPRATROPIUM 2.5MG/0.5MG, 3 ML NPPB SCH ×4 (06:47→18:32)
[2017-10-22] MEDS: CHOLESTYRAMINE LIGHT 4GM PACKET PO SCH ×2 (08:15→21:50)
[2017-10-22] MEDS: CHOLECALCIFEROL 1,000 UNIT TABLET PO SCH (08:15)
[2017-10-22] MEDS: CEFTRIAXONE 1,000 MG in DEXTROSE 5% 50 ML IV SCH (08:15)
[2017-10-22] MEDS: FINASTERIDE 5 MG TABLET PO SCH (08:16)
[2017-10-22] MEDS: NYSTATIN/TRIAMCINOLONE CRM 15GM TP SCH ×2 (08:16→21:50)
[2017-10-22] MEDS: APIXABAN 5 MG TABLET PO SCH ×2 (08:16→21:51)
[2017-10-22] MEDS: LACTOBACILLUS CHEW TABLET PO SCH ×2 (08:16→21:49)
[2017-10-22] MEDS: AMIODARONE 200 MG TABLET PO SCH (08:16)
[2017-10-22] MEDS: ATORVASTATIN 40 MG TABLET PO SCH (21:49)
[2017-10-22] MEDS: TAMSULOSIN 0.4 MG CAP.ER.24H PO SCH (21:49)
[2017-10-23 04:48] LABS: MEAN CORPUSCULAR HEMOGLOBIN 29.1 pg (27.5-34.5); MEAN CORPUSCULAR HGB CONC 32.4 g/dL (33.2-36.2); MEAN CORPUSCULAR VOLUME 89.8 fL (81-97); PLATELET COUNT 426 x10^3/uL (130-400); RED BLOOD COUNT 5.45 x10^6/uL (4.38-5.82); RED CELL DISTRIBUTION WIDTH 15.4 % (9.4-14.8)
[2017-10-23 04:56] LABS: ANION GAP 10 mmol/L (5-15); CALCIUM 8.5 mg/dL (8.5-10.1); CHLORIDE 108 mmol/L (98-107); CREATININE 0.51 mg/dL (0.7-1.3)
[2017-10-23 05:15] LABS: BASOPHILS # (AUTO) 0.18 x10^3/uL (0-0.1); BASOPHILS % (AUTO) 1 % (0-1); EOSINOPHILS # (AUTO) 0.04 x10^3/uL (0-0.4); EOSINOPHILS % (AUTO) 0 % (1-7); LYMPHOCYTES # (AUTO) 1.95 x10^3/uL (1-3.4); LYMPHOCYTES % (AUTO) 8 % (22-44); MD SCAN; MONOCYTES # (AUTO) 1.52 x10^3/uL (0.2-0.8); MONOCYTES % (AUTO) 6 % (2-9); NEUTROPHILS # (AUTO) 22.22 x10^3/uL (1.8-6.8); NEUTROPHILS % (AUTO) 86 % (42-75)
[2017-10-23] MEDS: METOPROLOL TARTRATE 50 MG TABLET PO SCH ×2 (05:27→15:56)
[2017-10-23] MEDS: ONDANSETRON 2MG/ML, 2ML IVPush PRN ×2 (05:27→09:33)
[2017-10-23] MEDS: VANCOMYCIN 50 MG/ML ORAL SUSP PO SCH ×4 (05:27→22:00)
[2017-10-23] MEDS: ALBUTEROL/IPRATROPIUM 2.5MG/0.5MG, 3 ML NPPB SCH ×4 (07:00→19:40)
[2017-10-23] MEDS: CEFTRIAXONE 1,000 MG in DEXTROSE 5% 50 ML IV SCH (08:13)
[2017-10-23] MEDS: CHOLESTYRAMINE LIGHT 4GM PACKET PO SCH ×2 (09:33→21:00)
[2017-10-23] MEDS: LACTOBACILLUS CHEW TABLET PO SCH ×2 (09:33→21:00)
[2017-10-23] MEDS: APIXABAN 5 MG TABLET PO SCH ×2 (09:33→21:00)
[2017-10-23] MEDS: CHOLECALCIFEROL 1,000 UNIT TABLET PO SCH (09:33)
[2017-10-23] MEDS: FINASTERIDE 5 MG TABLET PO SCH (09:33)
[2017-10-23] MEDS: AMIODARONE 200 MG TABLET PO SCH (09:33)
[2017-10-23] MEDS: NYSTATIN/TRIAMCINOLONE CRM 15GM TP SCH ×2 (09:34→22:39)
[2017-10-23] MEDS: ATORVASTATIN 40 MG TABLET PO SCH (21:00)
[2017-10-23] MEDS: TAMSULOSIN 0.4 MG CAP.ER.24H PO SCH (21:00)
[2017-10-24 03:39] LABS: MEAN CORPUSCULAR HEMOGLOBIN 28.7 pg (27.5-34.5); MEAN CORPUSCULAR HGB CONC 32.4 g/dL (33.2-36.2); MEAN CORPUSCULAR VOLUME 88.5 fL (81-97); MEAN PLATELET VOLUME 8.4 fL (7.4-10.4); PLATELET COUNT 414 x10^3/uL (130-400); RED BLOOD COUNT 5.38 x10^6/uL (4.38-5.82); RED CELL DISTRIBUTION WIDTH 15.6 % (9.4-14.8)
[2017-10-24 03:47] LABS: ANION GAP 8 mmol/L (5-15); CHLORIDE 102 mmol/L (98-107); CREATININE 0.59 mg/dL (0.7-1.3)
[2017-10-24 03:55] LABS: MD YES
[2017-10-24 03:58] LABS: BAND#(MANUAL) 0.35 x10^3/uL; BANDS%(MANUAL) 1 % (0-7); EOS#(MANUAL) 0.35 x10^3/uL (0.0-0.4); EOS% (MANUAL) 1 % (1-7); LYMPH#(MANUAL) 2.45 x10^3/uL (1-3.4); LYMPHS% (MANUAL) 7 % (22-44); MONOS#(MANUAL) 2.45 x10^3/uL (0.3-2.7); MONOS% (MANUAL) 7 % (2-9); REACTIVE LYMPHS % (MANUAL) 4 % (0-0); SEGS% (MANUAL) 80 % (42-75)
[2017-10-24 03:59] LABS: ANISOCYTOSIS 1+; POLYCHROMASIA 1+
[2017-10-24 04:00] LABS: <PLATELET ESTIMATE> INCREASED; LARGE PLATELETS 1+
[2017-10-24] MEDS: VANCOMYCIN 50 MG/ML ORAL SUSP PO SCH ×4 (04:00→21:22)
[2017-10-24] MEDS: METOPROLOL TARTRATE 50 MG TABLET PO SCH ×2 (06:00→17:10)
[2017-10-24] MEDS: CEFTRIAXONE 1,000 MG in DEXTROSE 5% 50 ML IV SCH (08:06)
[2017-10-24] MEDS: NYSTATIN/TRIAMCINOLONE CRM 15GM TP SCH ×2 (09:16→21:21)
[2017-10-24] MEDS: AMIODARONE 200 MG TABLET PO SCH (09:16)
[2017-10-24] MEDS: ALBUTEROL/IPRATROPIUM 2.5MG/0.5MG, 3 ML NPPB SCH ×3 (09:25→20:00)
[2017-10-24] MEDS: APIXABAN 5 MG TABLET PO SCH (12:43)
[2017-10-24] MEDS: LACTOBACILLUS CHEW TABLET PO SCH ×2 (12:43→21:22)
[2017-10-24] MEDS: CHOLECALCIFEROL 1,000 UNIT TABLET PO SCH (12:44)
[2017-10-24] MEDS: FINASTERIDE 5 MG TABLET PO SCH (12:57)
[2017-10-24] MEDS: CHOLESTYRAMINE LIGHT 4GM PACKET PO SCH ×2 (12:57→21:22)
[2017-10-24] MEDS: SODIUM CHLORIDE 0.9% 1,000 ML IV SCH (18:30)
[2017-10-24] MEDS: PIPERACILLIN/TAZO/PMX 3.375GM 50 ML IV SCH ×2 (18:34→23:34)
[2017-10-24] MEDS: MORPHINE SULFATE 4 MG/ML, 1ML IVPush PRN (19:57)
[2017-10-24] MEDS: TAMSULOSIN 0.4 MG CAP.ER.24H PO SCH (21:22)
[2017-10-24] MEDS: ATORVASTATIN 40 MG TABLET PO SCH (21:22)
[2017-10-25] MEDS: VANCOMYCIN 50 MG/ML ORAL SUSP PO SCH ×4 (04:43→21:25)
[2017-10-25 05:26] LABS: MEAN CORPUSCULAR HEMOGLOBIN 29.6 pg (27.5-34.5); MEAN CORPUSCULAR HGB CONC 32.9 g/dL (33.2-36.2); MEAN CORPUSCULAR VOLUME 89.9 fL (81-97); MEAN PLATELET VOLUME 8.4 fL (7.4-10.4); PLATELET COUNT 457 x10^3/uL (130-400); RED BLOOD COUNT 4.89 x10^6/uL (4.38-5.82); RED CELL DISTRIBUTION WIDTH 15.7 % (9.4-14.8)
[2017-10-25] MEDS: METOPROLOL TARTRATE 50 MG TABLET PO SCH ×2 (05:30→17:48)
[2017-10-25 05:32] LABS: CALCIUM 8.6 mg/dL (8.5-10.1); CHLORIDE 102 mmol/L (98-107)
[2017-10-25 05:35] LABS: CREATININE 0.67 mg/dL (0.7-1.3)
[2017-10-25 05:40] LABS: ANION GAP 4 mmol/L (5-15)
[2017-10-25 05:58] LABS: MD YES
[2017-10-25 06:02] LABS: LYMPH#(MANUAL) 1.77 x10^3/uL (1-3.4); LYMPHS% (MANUAL) 5 % (22-44); MONOS#(MANUAL) 1.06 x10^3/uL (0.3-2.7); MONOS% (MANUAL) 3 % (2-9); REACTIVE LYMPHS # (MANUAL) 1.42 x10^3/uL (0-0); REACTIVE LYMPHS % (MANUAL) 4 % (0-0); SEG#(MANUAL) 31.15 x10^3/uL (1.8-6.8); SEGS% (MANUAL) 88 % (42-75)
[2017-10-25 06:03] LABS: <PLATELET ESTIMATE> INCREASED; ANISOCYTOSIS 1+; LARGE PLATELETS 1+; POLYCHROMASIA 1+
[2017-10-25] MEDS: PIPERACILLIN/TAZO/PMX 3.375GM 50 ML IV SCH ×3 (06:29→17:49)
[2017-10-25] MEDS: ALBUTEROL/IPRATROPIUM 2.5MG/0.5MG, 3 ML NPPB SCH ×3 (06:39→19:16)
[2017-10-25] MEDS: SODIUM CHLORIDE 0.9% 1,000 ML IV SCH (07:36)
[2017-10-25] MEDS: CEFTRIAXONE 1,000 MG in DEXTROSE 5% 50 ML IV SCH (07:36)
[2017-10-25] MEDS: AMIODARONE 200 MG TABLET PO SCH (08:40)
[2017-10-25] MEDS: SODIUM CHLORIDE 0.45% 1,000 ML IV SCH ×2 (08:40→23:18)
[2017-10-25] MEDS: CHOLECALCIFEROL 1,000 UNIT TABLET PO SCH (08:40)
[2017-10-25] MEDS: LACTOBACILLUS CHEW TABLET PO SCH ×2 (08:41→20:11)
[2017-10-25] MEDS: POTASSIUM CHLORIDE 20 MEQ PACKET PO SCH ×2 (08:41→20:11)
[2017-10-25] MEDS: CHOLESTYRAMINE LIGHT 4GM PACKET PO SCH (08:41)
[2017-10-25] MEDS: FINASTERIDE 5 MG TABLET PO SCH (08:41)
[2017-10-25] MEDS: NYSTATIN/TRIAMCINOLONE CRM 15GM TP SCH ×2 (08:42→20:45)
[2017-10-25] MEDS: AcetaZOLAMIDE INJ 500 MG IVPush SCH ×2 (10:21→20:45)
[2017-10-25] MEDS: METOCLOPRAMIDE 5 MG/ML, 2ML IVPush SCH ×3 (10:37→23:18)
[2017-10-25 11:26] LABS: MICROSCOPIC NOT IND
[2017-10-25 11:41] LABS: CULTURE INDICATED? NO
[2017-10-25] MEDS ORDERED: LIDOCAINE 1%, 20ML ONE (12:03)
[2017-10-25] MEDS ORDERED: NALOXONE 1 MG/ML, 2ML ONE (12:20)
[2017-10-25] MEDS ORDERED: FENTANYL PF 100 MCG/2ML ONE (12:20)
[2017-10-25 14:57] LABS: GASTRIC OCCULT BLD POSITIVE (NEGATIVE); GASTRIC PH 1 (1-7)
[2017-10-25] MEDS: APIXABAN 5 MG TABLET PO SCH (18:43)
[2017-10-25] MEDS: TAMSULOSIN 0.4 MG CAP.ER.24H PO SCH (20:10)
[2017-10-25] MEDS: ATORVASTATIN 40 MG TABLET PO SCH (20:11)
[2017-10-25] MEDS: MORPHINE SULFATE 4 MG/ML, 1ML IVPush PRN (20:45)
[2017-10-26] MEDS: PIPERACILLIN/TAZO/PMX 3.375GM 50 ML IV SCH ×4 (00:26→17:57)
[2017-10-26] MEDS: VANCOMYCIN 50 MG/ML ORAL SUSP PO SCH ×4 (04:20→21:59)
[2017-10-26 04:43] LABS: MEAN CORPUSCULAR HEMOGLOBIN 28.9 pg (27.5-34.5); MEAN CORPUSCULAR HGB CONC 32.1 g/dL (33.2-36.2); MEAN PLATELET VOLUME 8.5 fL (7.4-10.4); PLATELET COUNT 535 x10^3/uL (130-400); RED BLOOD COUNT 5.13 x10^6/uL (4.38-5.82); RED CELL DISTRIBUTION WIDTH 16.1 % (9.4-14.8)
[2017-10-26 04:49] LABS: ANION GAP 7 mmol/L (5-15); CALCIUM 9.5 mg/dL (8.5-10.1); CHLORIDE 100 mmol/L (98-107); CREATININE 0.98 mg/dL (0.7-1.3)
[2017-10-26] MEDS: METOPROLOL TARTRATE 50 MG TABLET PO SCH ×2 (05:33→17:57)
[2017-10-26 05:41] LABS: MD YES
[2017-10-26 05:43] LABS: ANISOCYTOSIS 1+; EOS#(MANUAL) 0.26 x10^3/uL (0.0-0.4); EOS% (MANUAL) 1 % (1-7); LYMPH#(MANUAL) 4.49 x10^3/uL (1-3.4); LYMPHS% (MANUAL) 17 % (22-44); MONOS#(MANUAL) 1.32 x10^3/uL (0.3-2.7); MONOS% (MANUAL) 5 % (2-9); SEG#(MANUAL) 20.33 x10^3/uL (1.8-6.8); SEGS% (MANUAL) 77 % (42-75)
[2017-10-26 05:44] LABS: <PLATELET ESTIMATE> INCREASED; LARGE PLATELETS 1+; POLYCHROMASIA 1+
[2017-10-26] MEDS: METOCLOPRAMIDE 5 MG/ML, 2ML IVPush SCH ×3 (06:11→17:57)
[2017-10-26] MEDS: ALBUTEROL/IPRATROPIUM 2.5MG/0.5MG, 3 ML NPPB SCH ×4 (07:00→19:17)
[2017-10-26] MEDS ORDERED: POTASSIUM CHLORIDE 20 MEQ TAB.ER.PRT PO SCH (08:00)
[2017-10-26] MEDS: FINASTERIDE 5 MG TABLET PO SCH (08:51)
[2017-10-26] MEDS: LACTOBACILLUS CHEW TABLET PO SCH ×2 (08:51→20:10)
[2017-10-26] MEDS: CHOLECALCIFEROL 1,000 UNIT TABLET PO SCH (08:52)
[2017-10-26] MEDS: AcetaZOLAMIDE INJ 500 MG IVPush SCH ×2 (08:52→20:05)
[2017-10-26] MEDS: APIXABAN 5 MG TABLET PO SCH ×2 (08:52→19:53)
[2017-10-26] MEDS: AMIODARONE 200 MG TABLET PO SCH (08:52)
[2017-10-26] MEDS: NYSTATIN/TRIAMCINOLONE CRM 15GM TP SCH ×2 (08:53→20:10)
[2017-10-26] MEDS ORDERED: POTASSIUM CHLORIDE 10% 40 MEQ/30 ML UDC ONE (10:08)
[2017-10-26] MEDS: POTASSIUM CHLORIDE 10% 40 MEQ/30 ML UDC PO SCH ×2 (10:17→20:10)
[2017-10-26] MEDS: LACTULOSE 20 GM/30 ML UDC NG PRN (12:16)
[2017-10-26 14:19] LABS: MEAN CORPUSCULAR HEMOGLOBIN 28.6 pg (27.5-34.5); MEAN CORPUSCULAR HGB CONC 31.7 g/dL (33.2-36.2); MEAN CORPUSCULAR VOLUME 90.2 fL (81-97); MEAN PLATELET VOLUME 8.5 fL (7.4-10.4); PLATELET COUNT 538 x10^3/uL (130-400); RED BLOOD COUNT 5.46 x10^6/uL (4.38-5.82); RED CELL DISTRIBUTION WIDTH 16.2 % (9.4-14.8)
[2017-10-26 14:31] LABS: ALANINE AMINOTRANSFERASE 31 U/L (12-78); ALBUMIN 2.4 g/dL (3.4-5.0); ANION GAP 7 mmol/L (5-15); CALCIUM 9.3 mg/dL (8.5-10.1); CHLORIDE 105 mmol/L (98-107); CREATININE 1.01 mg/dL (0.7-1.3)
[2017-10-26 14:33] LABS: ALKALINE PHOSPHATASE 68 U/L (45-117); BILIRUBIN,TOTAL 0.4 mg/dL (0.2-1.0); TOTAL PROTEIN 6.8 g/dL (6.4-8.2)
[2017-10-26 15:11] LABS: BASOPHILS # (AUTO) 0.03 x10^3/uL (0-0.1); BASOPHILS % (AUTO) 0 % (0-1); EOSINOPHILS # (AUTO) 0.16 x10^3/uL (0-0.4); EOSINOPHILS % (AUTO) 1 % (1-7); LYMPHOCYTES # (AUTO) 2.31 x10^3/uL (1-3.4); LYMPHOCYTES % (AUTO) 10 % (22-44); MD SCAN; MONOCYTES # (AUTO) 1.91 x10^3/uL (0.2-0.8); MONOCYTES % (AUTO) 8 % (2-9); NEUTROPHILS # (AUTO) 18.48 x10^3/uL (1.8-6.8); NEUTROPHILS % (AUTO) 81 % (42-75)
[2017-10-26] MEDS ORDERED: POTASSIUM CHLORIDE 10% 40 MEQ/30 ML UDC PO ONE (16:00)
[2017-10-26] MEDS: ATORVASTATIN 40 MG TABLET PO SCH (20:10)
[2017-10-26] MEDS: TAMSULOSIN 0.4 MG CAP.ER.24H PO SCH (20:10)
[2017-10-27] MEDS: PIPERACILLIN/TAZO/PMX 3.375GM 50 ML IV SCH ×4 (00:12→18:09)
[2017-10-27] MEDS: METOCLOPRAMIDE 5 MG/ML, 2ML IVPush SCH ×4 (00:12→18:09)
[2017-10-27] MEDS: VANCOMYCIN 50 MG/ML ORAL SUSP PO SCH ×4 (04:02→21:14)
[2017-10-27 04:36] LABS: MEAN CORPUSCULAR HEMOGLOBIN 28.7 pg (27.5-34.5); MEAN CORPUSCULAR HGB CONC 31.9 g/dL (33.2-36.2); MEAN CORPUSCULAR VOLUME 90.2 fL (81-97); MEAN PLATELET VOLUME 8.5 fL (7.4-10.4); PLATELET COUNT 551 x10^3/uL (130-400); RED BLOOD COUNT 5.18 x10^6/uL (4.38-5.82)
[2017-10-27 04:46] LABS: ANION GAP 9 mmol/L (5-15); CALCIUM 9.2 mg/dL (8.5-10.1); CHLORIDE 114 mmol/L (98-107); CREATININE 0.94 mg/dL (0.7-1.3)
[2017-10-27 05:26] VITALS: BP 130/73
[2017-10-27] MEDS: METOPROLOL TARTRATE 50 MG TABLET PO SCH ×2 (05:45→16:49)
[2017-10-27 05:49] LABS: BASOPHILS # (AUTO) 0.04 x10^3/uL (0-0.1); BASOPHILS % (AUTO) 0 % (0-1); EOSINOPHILS # (AUTO) 0.32 x10^3/uL (0-0.4); EOSINOPHILS % (AUTO) 2 % (1-7); LYMPHOCYTES # (AUTO) 2.76 x10^3/uL (1-3.4); LYMPHOCYTES % (AUTO) 14 % (22-44); MD SCAN; MONOCYTES # (AUTO) 1.71 x10^3/uL (0.2-0.8); MONOCYTES % (AUTO) 8 % (2-9); NEUTROPHILS # (AUTO) 15.58 x10^3/uL (1.8-6.8); NEUTROPHILS % (AUTO) 76 % (42-75)
[2017-10-27] MEDS: ALBUTEROL/IPRATROPIUM 2.5MG/0.5MG, 3 ML NPPB SCH ×4 (07:00→19:27)
[2017-10-27] MEDS: FINASTERIDE 5 MG TABLET PO SCH (08:38)
[2017-10-27] MEDS: CHOLECALCIFEROL 1,000 UNIT TABLET PO SCH (09:13)
[2017-10-27] MEDS: AMIODARONE 200 MG TABLET PO SCH (09:13)
[2017-10-27] MEDS: APIXABAN 5 MG TABLET PO SCH ×2 (09:13→21:13)
[2017-10-27] MEDS: LACTOBACILLUS CHEW TABLET PO SCH ×2 (09:13→21:13)
[2017-10-27] MEDS: POTASSIUM CHLORIDE 10% 40 MEQ/30 ML UDC PO SCH ×2 (09:13→21:13)
[2017-10-27] MEDS: NYSTATIN/TRIAMCINOLONE CRM 15GM TP SCH ×2 (09:14→21:14)
[2017-10-27] MEDS: PANTOPRAZOLE 40 MG IV IVPush SCH (12:41)
[2017-10-27] MEDS: TAMSULOSIN 0.4 MG CAP.ER.24H PO SCH (20:54)
[2017-10-27] MEDS: ATORVASTATIN 40 MG TABLET PO SCH (21:13)
[2017-10-28] MEDS: METOCLOPRAMIDE 5 MG/ML, 2ML IVPush SCH ×4 (00:31→18:15)
[2017-10-28] MEDS: PANTOPRAZOLE 40 MG IV IVPush SCH ×2 (00:31→12:43)
[2017-10-28] MEDS: PIPERACILLIN/TAZO/PMX 3.375GM 50 ML IV SCH ×4 (00:31→18:15)
[2017-10-28] MEDS: VANCOMYCIN 50 MG/ML ORAL SUSP PO SCH ×4 (04:21→21:29)
[2017-10-28 04:27] LABS: MEAN CORPUSCULAR HEMOGLOBIN 28.4 pg (27.5-34.5); MEAN CORPUSCULAR HGB CONC 31.5 g/dL (33.2-36.2); MEAN CORPUSCULAR VOLUME 90.3 fL (81-97); MEAN PLATELET VOLUME 9.1 fL (7.4-10.4); PLATELET COUNT 552 x10^3/uL (130-400); RED BLOOD COUNT 4.71 x10^6/uL (4.38-5.82); RED CELL DISTRIBUTION WIDTH 16.3 % (9.4-14.8)
[2017-10-28 04:37] LABS: ANION GAP 6 mmol/L (5-15); CALCIUM 8.6 mg/dL (8.5-10.1); CHLORIDE 119 mmol/L (98-107); CREATININE 0.82 mg/dL (0.7-1.3)
[2017-10-28 04:51] LABS: MD YES
[2017-10-28 04:55] LABS: BASOS#(MANUAL) 0.23 x10^3/uL (0-0.1); BASOS% (MANUAL) 1 % (0-1); EOS#(MANUAL) 0.46 x10^3/uL (0.0-0.4); EOS% (MANUAL) 2 % (1-7); LYMPH#(MANUAL) 3.89 x10^3/uL (1-3.4); LYMPHS% (MANUAL) 17 % (22-44); MONOS#(MANUAL) 1.83 x10^3/uL (0.3-2.7); MONOS% (MANUAL) 8 % (2-9); SEG#(MANUAL) 16.49 x10^3/uL (1.8-6.8); SEGS% (MANUAL) 72 % (42-75)
[2017-10-28 04:56] LABS: <PLATELET ESTIMATE> INCREASED; ANISOCYTOSIS 1+; LARGE PLATELETS 1+; POLYCHROMASIA 1+
[2017-10-28] MEDS: METOPROLOL TARTRATE 50 MG TABLET PO SCH ×2 (06:14→18:15)
[2017-10-28] MEDS: ALBUTEROL/IPRATROPIUM 2.5MG/0.5MG, 3 ML NPPB SCH ×4 (07:00→19:54)
[2017-10-28] MEDS: NYSTATIN/TRIAMCINOLONE CRM 15GM TP SCH ×2 (10:24→21:44)
[2017-10-28] MEDS: FINASTERIDE 5 MG TABLET PO SCH (10:24)
[2017-10-28] MEDS: LACTOBACILLUS CHEW TABLET PO SCH ×2 (10:24→21:29)
[2017-10-28] MEDS: AMIODARONE 200 MG TABLET PO SCH (10:24)
[2017-10-28] MEDS: APIXABAN 5 MG TABLET PO SCH ×2 (10:24→21:44)
[2017-10-28] MEDS: CHOLECALCIFEROL 1,000 UNIT TABLET PO SCH (10:24)
[2017-10-28] MEDS: TAMSULOSIN 0.4 MG CAP.ER.24H PO SCH (21:29)
[2017-10-28] MEDS: ATORVASTATIN 40 MG TABLET PO SCH (21:29)
[2017-10-29] MEDS: METOCLOPRAMIDE 5 MG/ML, 2ML IVPush SCH ×4 (00:27→18:29)
[2017-10-29] MEDS: PANTOPRAZOLE 40 MG IV IVPush SCH ×2 (00:27→11:55)
[2017-10-29] MEDS: PIPERACILLIN/TAZO/PMX 3.375GM 50 ML IV SCH ×3 (00:27→11:55)
[2017-10-29] MEDS: VANCOMYCIN 50 MG/ML ORAL SUSP PO SCH ×4 (04:24→22:41)
[2017-10-29 04:50] LABS: MEAN CORPUSCULAR HEMOGLOBIN 28.7 pg (27.5-34.5); MEAN CORPUSCULAR HGB CONC 31.3 g/dL (33.2-36.2); MEAN CORPUSCULAR VOLUME 91.6 fL (81-97); MEAN PLATELET VOLUME 9.1 fL (7.4-10.4); PLATELET COUNT 432 x10^3/uL (130-400); RED BLOOD COUNT 4.38 x10^6/uL (4.38-5.82); RED CELL DISTRIBUTION WIDTH 16.1 % (9.4-14.8)
[2017-10-29 05:18] LABS: MD YES
[2017-10-29 05:19] LABS: ANISOCYTOSIS 1+; BAND#(MANUAL) 0.19 x10^3/uL; BANDS%(MANUAL) 1 % (0-7); EOS#(MANUAL) 1.15 x10^3/uL (0.0-0.4); EOS% (MANUAL) 6 % (1-7); LYMPH#(MANUAL) 3.06 x10^3/uL (1-3.4); LYMPHS% (MANUAL) 16 % (22-44); METAMYELOCYTES# (MANUAL) 0.19 x10^3/uL (0-0); METAMYELOCYTES% (MANUAL) 1 % (0-1); MONOS#(MANUAL) 0.76 x10^3/uL (0.3-2.7); MONOS% (MANUAL) 4 % (2-9); POLYCHROMASIA 1+; SEG#(MANUAL) 13.75 x10^3/uL (1.8-6.8); SEGS% (MANUAL) 72 % (42-75)
[2017-10-29 05:20] LABS: <PLATELET ESTIMATE> INCREASED; LARGE PLATELETS 1+
[2017-10-29 05:38] LABS: ALANINE AMINOTRANSFERASE 21 U/L (12-78); ALBUMIN 2.1 g/dL (3.4-5.0); ALKALINE PHOSPHATASE 57 U/L (45-117); ANION GAP 8 mmol/L (5-15); BILIRUBIN,TOTAL 0.6 mg/dL (0.2-1.0); CALCIUM 8.5 mg/dL (8.5-10.1); CHLORIDE 113 mmol/L (98-107); CREATININE 0.75 mg/dL (0.7-1.3); TOTAL PROTEIN 5.6 g/dL (6.4-8.2)
[2017-10-29] MEDS: METOPROLOL TARTRATE 50 MG TABLET PO SCH ×2 (05:51→18:29)
[2017-10-29] MEDS: ALBUTEROL/IPRATROPIUM 2.5MG/0.5MG, 3 ML NPPB SCH ×4 (06:49→19:26)
[2017-10-29] MEDS: LACTOBACILLUS CHEW TABLET PO SCH ×2 (08:16→20:19)
[2017-10-29] MEDS: CHOLECALCIFEROL 1,000 UNIT TABLET PO SCH (08:17)
[2017-10-29] MEDS: AMIODARONE 200 MG TABLET PO SCH (08:17)
[2017-10-29] MEDS: APIXABAN 5 MG TABLET PO SCH ×2 (08:17→20:18)
[2017-10-29] MEDS: NYSTATIN/TRIAMCINOLONE CRM 15GM TP SCH ×2 (08:18→20:19)
[2017-10-29] MEDS: FINASTERIDE 5 MG TABLET PO SCH (08:55)
[2017-10-29] MEDS ORDERED: POTASSIUM CHLORIDE 10% 40 MEQ/30 ML UDC PO ONE (18:00)
[2017-10-29] MEDS: PIPERACILLIN/TAZO 3.375 GM in DEXTROSE 5% 50 ML IV SCH (18:30)
[2017-10-29] MEDS: TAMSULOSIN 0.4 MG CAP.ER.24H PO SCH (20:18)
[2017-10-29] MEDS: ATORVASTATIN 40 MG TABLET PO SCH (20:19)
[2017-10-30] MEDS: METOCLOPRAMIDE 5 MG/ML, 2ML IVPush SCH ×4 (00:09→20:02)
[2017-10-30] MEDS: PANTOPRAZOLE 40 MG IV IVPush SCH ×2 (00:10→11:51)
[2017-10-30] MEDS: PIPERACILLIN/TAZO 3.375 GM in DEXTROSE 5% 50 ML IV SCH ×3 (00:10→11:51)
[2017-10-30] MEDS: VANCOMYCIN 50 MG/ML ORAL SUSP PO SCH ×3 (05:02→15:20)
[2017-10-30] MEDS: ALBUTEROL/IPRATROPIUM 2.5MG/0.5MG, 3 ML NPPB SCH ×4 (06:44→18:42)
[2017-10-30 06:51] LABS: MEAN CORPUSCULAR HEMOGLOBIN 28.6 pg (27.5-34.5); MEAN CORPUSCULAR HGB CONC 31.5 g/dL (33.2-36.2); MEAN CORPUSCULAR VOLUME 90.8 fL (81-97); MEAN PLATELET VOLUME 9.6 fL (7.4-10.4); PLATELET COUNT 404 x10^3/uL (130-400); RED BLOOD COUNT 3.81 x10^6/uL (4.38-5.82); RED CELL DISTRIBUTION WIDTH 16.3 % (9.4-14.8)
[2017-10-30 06:58] LABS: ANION GAP 4 mmol/L (5-15); CALCIUM 8.1 mg/dL (8.5-10.1); CHLORIDE 115 mmol/L (98-107)
[2017-10-30 06:59] LABS: CREATININE 0.58 mg/dL (0.7-1.3)
[2017-10-30 07:23] LABS: BASOPHILS # (AUTO) 0.07 x10^3/uL (0-0.1); BASOPHILS % (AUTO) 1 % (0-1); EOSINOPHILS # (AUTO) 0.85 x10^3/uL (0-0.4); EOSINOPHILS % (AUTO) 6 % (1-7); LYMPHOCYTES # (AUTO) 2.38 x10^3/uL (1-3.4); LYMPHOCYTES % (AUTO) 16 % (22-44); MD SCAN; MONOCYTES # (AUTO) 1.42 x10^3/uL (0.2-0.8); MONOCYTES % (AUTO) 10 % (2-9); NEUTROPHILS # (AUTO) 10.25 x10^3/uL (1.8-6.8); NEUTROPHILS % (AUTO) 69 % (42-75)
[2017-10-30] MEDS: APIXABAN 5 MG TABLET PO SCH (08:24)
[2017-10-30] MEDS: METOPROLOL TARTRATE 50 MG TABLET PO SCH ×2 (08:24→15:21)
[2017-10-30] MEDS: FINASTERIDE 5 MG TABLET PO SCH (08:24)
[2017-10-30] MEDS: AMIODARONE 200 MG TABLET PO SCH (08:25)
[2017-10-30] MEDS: CHOLECALCIFEROL 1,000 UNIT TABLET PO SCH (08:25)
[2017-10-30] MEDS: LACTOBACILLUS CHEW TABLET PO SCH ×2 (08:25→21:05)
[2017-10-30] MEDS: NYSTATIN/TRIAMCINOLONE CRM 15GM TP SCH ×2 (08:30→21:05)
[2017-10-30] MEDS ORDERED: SODIUM CHLORIDE 0.9%, 250ML IVBOLUS ONE ×2 (11:00→15:30)
[2017-10-30] MEDS ORDERED: MAGNESIUM SULFATE PMX 4GM/100M 100 ML IV ONE (13:00)
[2017-10-30 16:19] LABS: HEMOGRAM NOTE RECHECKED
[2017-10-30] MEDS: ATORVASTATIN 40 MG TABLET PO SCH (21:05)
[2017-10-30] MEDS: TAMSULOSIN 0.4 MG CAP.ER.24H PO SCH (21:05)
[2017-10-31] MEDS: PANTOPRAZOLE 40 MG IV IVPush SCH (01:22)
[2017-10-31] MEDS: METOCLOPRAMIDE 5 MG/ML, 2ML IVPush SCH ×2 (01:22→06:42)
[2017-10-31] MEDS: VANCOMYCIN 50 MG/ML ORAL SUSP PO SCH ×2 (01:22→05:27)
[2017-10-31 03:18] LABS: MEAN CORPUSCULAR HEMOGLOBIN 28.8 pg (27.5-34.5); MEAN CORPUSCULAR HGB CONC 31.5 g/dL (33.2-36.2); MEAN CORPUSCULAR VOLUME 91.4 fL (81-97); MEAN PLATELET VOLUME 9.8 fL (7.4-10.4); PLATELET COUNT 402 x10^3/uL (130-400); RED BLOOD COUNT 2.56 x10^6/uL (4.38-5.82); RED CELL DISTRIBUTION WIDTH 16.4 % (9.4-14.8)
[2017-10-31 03:23] LABS: ANION GAP 11 mmol/L (5-15); CALCIUM 7.8 mg/dL (8.5-10.1); CHLORIDE 121 mmol/L (98-107); CREATININE 0.84 mg/dL (0.7-1.3)
[2017-10-31 03:39] LABS: BASOPHILS # (AUTO) 0.04 x10^3/uL (0-0.1); BASOPHILS % (AUTO) 0 % (0-1); EOSINOPHILS # (AUTO) 0.17 x10^3/uL (0-0.4); EOSINOPHILS % (AUTO) 1 % (1-7); LYMPHOCYTES # (AUTO) 3.41 x10^3/uL (1-3.4); LYMPHOCYTES % (AUTO) 22 % (22-44); MD SCAN; MONOCYTES % (AUTO) 14 % (2-9); NEUTROPHILS # (AUTO) 9.68 x10^3/uL (1.8-6.8); NEUTROPHILS % (AUTO) 63 % (42-75)
[2017-10-31] MEDS: METOPROLOL TARTRATE 50 MG TABLET PO SCH (06:43)
[2017-10-31 07:05] VITALS: BP 83/33
[2017-10-31] MEDS ORDERED: morphine SULFATE 125 MG in SODIUM CHLORIDE 0.9% 237.5 ML IV PRN (08:00)
[2017-10-31] MEDS: MORPHINE SULFATE 4 MG/ML, 1ML IVPush PRN (08:04)
[2017-10-31] MEDS ORDERED: LORazepam 2 MG/ML, 1ML IV PRN (08:30)
[2017-10-31] MEDS ORDERED: ATROPINE OPHTH SOLN 1%, 2ML PO PRN (08:30)
== END 2017-10-31 23:55 | disposition expired | DRG 870 ==
LOC: ED 07:19 → EDIP 07:38 → CCU 12:01 → 3NW 10-31 12:00
PROVIDERS: ADMIT Hospitalist; ATTEND Hospitalist
PROC: 5A1955Z Respiratory Ventilation, Greater than 96 Consecutive Hours (ICD-10-PCS; principal; 2017-10-14)
PROC: 0BH17EZ Insertion of Endotracheal Airway into Trachea, Via Natural or Artificial Opening (ICD-10-PCS; 2017-10-14)
PROC: 0T9B70Z Drainage of Bladder with Drainage Device, Via Natural or Artificial Opening (ICD-10-PCS; 2017-10-14)
PROC: 02HV33Z Insertion of Infusion Device into Superior Vena Cava, Percutaneous Approach (ICD-10-PCS; 2017-10-14)
PROC: 0W993ZZ Drainage of Right Pleural Cavity, Percutaneous Approach (ICD-10-PCS; 2017-10-16)
PROC: BB4BZZZ Ultrasonography of Pleura (ICD-10-PCS; 2017-10-16)
PROC: 0W9900Z Drainage of Right Pleural Cavity with Drainage Device, Open Approach (ICD-10-PCS; 2017-10-16)
PROC: 0W9930Z Drainage of Right Pleural Cavity with Drainage Device, Percutaneous Approach (ICD-10-PCS; 2017-10-25)
PROC: 30233N1 Transfusion of Nonautologous Red Blood Cells into Peripheral Vein, Percutaneous Approach (ICD-10-PCS; 2017-10-31)
DX: A41.59 Other Gram-negative sepsis (principal); J96.01 Acute respiratory failure with hypoxia; R65.21 Severe sepsis with septic shock; J15.8 Pneumonia due to other specified bacteria; E11.10 Type 2 diabetes mellitus with ketoacidosis without coma; Z99.11 Dependence on respirator [ventilator] status; I11.0 Hypertensive heart disease with heart failure; G93.41 Metabolic encephalopathy; E87.3 Alkalosis; I50.9 Heart failure, unspecified; J96.21 Acute and chronic respiratory failure with hypoxia; E87.0 Hyperosmolality and hypernatremia; K56.7 Ileus, unspecified; G82.20 Paraplegia, unspecified; I42.9 Cardiomyopathy, unspecified; J44.0 Chronic obstructive pulmonary disease with (acute) lower respiratory infection; J98.11 Atelectasis; R13.12 Dysphagia, oropharyngeal phase; D64.9 Anemia, unspecified; E03.9 Hypothyroidism, unspecified; E78.5 Hyperlipidemia, unspecified; E87.6 Hypokalemia; F03.90 Unspecified dementia, unspecified severity, without behavioral disturbance, psychotic disturbance, mood disturbance, and anxiety; F17.210 Nicotine dependence, cigarettes, uncomplicated; I16.0 Hypertensive urgency; I25.10 Atherosclerotic heart disease of native coronary artery without angina pectoris; I45.10 Unspecified right bundle-branch block; I48.0 Paroxysmal atrial fibrillation; I49.5 Sick sinus syndrome; I70.0 Atherosclerosis of aorta; R91.1 Solitary pulmonary nodule; K52.9 Noninfective gastroenteritis and colitis, unspecified; N40.0 Benign prostatic hyperplasia without lower urinary tract symptoms; Z51.5 Encounter for palliative care; I25.2 Old myocardial infarction; Z79.01 Long term (current) use of anticoagulants; Z86.12 Personal history of poliomyelitis; Z86.19 Personal history of other infectious and parasitic diseases; Z87.11 Personal history of peptic ulcer disease; Z87.440 Personal history of urinary (tract) infections; Z95.0 Presence of cardiac pacemaker; Z88.8 Allergy status to other drugs, medicaments and biological substances; Z90.49 Acquired absence of other specified parts of digestive tract; Z90.89 Acquired absence of other organs; Z98.1 Arthrodesis status
CPT/HCPCS: 32555; 32557; 36415; 36600; 51702; 70450; 71045; 71260; 71275; 74018; 74175; 74177; 74230; 80048; 80053; 80061; 81001; 81003; 82040; 82140; 82150; 82271; 82306; 82803; 82945; 82947; 82962; 83605; 83615; 83735; 83880; 83986; 84100; 84155; 84157; 84443; 84478; 84481; 84484; 85014; 85018; 85025; 85610; 86677; 86850; 86900; 86923; 87040; 87070; 87075; 87077; 87081; 87102; 87116; 87186; 87205; 87206; 88112; 89051; 93005; 93306; 94002; 94003; 94640; 96365; 96366; 96368; 96375; 96376; J0610; J0696; J1650; J2185; J2250; J2405; J2543; J2704; J3010; J3370; J3475; J3490; J7060; J7620; Q9967; C1729; C9113; J0282; J0360; J1120; J2060; J2270; J2310; J2765; J7030; J7040; J7050; J7120; P9016; S0028